=== PATIENT | male | born 1935 | race Caucasian/White ===

== ENCOUNTER 2017-04-24 00:07 | Inpatient (IN) | payer MEDICARE, OTHER ==
[2017-04-24 01:02] LABS: ADD MAN DIFF? NO
[2017-04-24 01:04] LABS: WHITE BLOOD COUNT 13.7 10^3/ul (4.8-10.8)
[2017-04-24 01:04] LABS: BASOPHILS % 0.2 % (0.0-2.0); EOSINOPHILS % 0.3 % (0.0-7.0); HEMATOCRIT 28.3 % (42.0-52.0); HEMOGLOBIN 8.8 g/dl (14.0-18.0); LYMPHOCYTES # 0.9 10^3/ul (0.8-2.9); LYMPHOCYTES % 6.3 % (15.0-51.0); MEAN CORPUSCULAR HEMOGLOBIN 24.4 pg (29.0-33.0); MEAN CORPUSCULAR HGB CONC 31.1 g/dl (32.0-37.0); MEAN CORPUSCULAR VOLUME 78.6 fl (82.0-101.0); MEAN PLATELET VOLUME 10.8 fl (7.4-10.4); MONOCYTES % 7.4 % (0.0-11.0); NEUTROPHIL # 11.7 10^3/ul (1.6-7.5); NEUTROPHILS % 85.1 % (39.0-77.0); PLATELET COUNT 320 10^3/UL (140-415); RED CELL DISTRIBUTION WIDTH 16.5 % (11.5-14.5)
[2017-04-24 01:36] LABS: ANION GAP 19 (8-16); BLOOD UREA NITROGEN 47 mg/dl (7-20); CALCIUM 9.3 mg/dl (8.4-10.2); CARBON DIOXIDE 23 mmol/L (21-31); CHLORIDE 105 mmol/L (97-110); CREATININE 3.33 mg/dl (0.61-1.24); GLUCOSE 278 mg/dl (70-220); POTASSIUM 5.6 mmol/L (3.5-5.1); SODIUM 141 mmol/L (135-144)
[2017-04-24] MEDS ORDERED: ALBUTEROL 0.083% (NEB) 2.5 MG/3 ML AMP HHN (02:07)
[2017-04-24] MEDS: ASPIRIN 81 MG TAB PO (02:27)
[2017-04-24] MEDS: NA POLYST SULFON 15 GM/60 ML BTL PO (02:27)
[2017-04-24] MEDS: DEXTROSE 50% 50 ML SYRINGE IV (02:27)
[2017-04-24] MEDS: INSULIN REGULAR, HUMAN 100 UNIT/1 ML 3ML VIAL IVP (02:33)
[2017-04-24] MEDS: ALBUTEROL 0.5% (NEB) 2.5 MG/0.5 ML AMP INH (02:49)
[2017-04-24 03:03] LABS: B-TYPE NATRIURETIC PEPTIDE 47700 PG/ML (0-450)
[2017-04-24] MEDS ORDERED: ACETAMINOPHEN 325 MG TAB PO (04:00)
[2017-04-24] MEDS ORDERED: NACL 0.9% 3 ML SYG IV (04:00)
[2017-04-24] MEDS ORDERED: ONDANSETRON 4 MG INJ IV (04:00)
[2017-04-24] MEDS: METOPROLOL 5 MG INJ IV (04:39)
[2017-04-24] MEDS: HEPARIN 1000 UNITS/ML 10 ML INJ IV ×2 (04:44→13:36)
[2017-04-24] MEDS: HEPARIN 25000 UNITS/250 ML 250 ML IV ×3 (04:45→21:32)
[2017-04-24] MEDS: ALBUMIN HUMAN 25% 100 ML IV ×2 (04:46→07:01)
[2017-04-24] MEDS: CLOPIDOGREL 75 MG TAB PO ×2 (04:47→13:37)
[2017-04-24 05:40] LABS: ADD MAN DIFF? NO
[2017-04-24 05:46] LABS: WHITE BLOOD COUNT 11.6 10^3/ul (4.8-10.8)
[2017-04-24 05:46] LABS: BASOPHILS % 0.2 % (0.0-2.0); EOSINOPHILS % 0.1 % (0.0-7.0); HEMATOCRIT 27.6 % (42.0-52.0); HEMOGLOBIN 8.6 g/dl (14.0-18.0); LYMPHOCYTES # 0.7 10^3/ul (0.8-2.9); LYMPHOCYTES % 5.9 % (15.0-51.0); MEAN CORPUSCULAR HEMOGLOBIN 24.4 pg (29.0-33.0); MEAN CORPUSCULAR HGB CONC 31.2 g/dl (32.0-37.0); MEAN CORPUSCULAR VOLUME 78.4 fl (82.0-101.0); MEAN PLATELET VOLUME 10.6 fl (7.4-10.4); MONOCYTE # 0.5 10^3/ul (0.3-0.9); MONOCYTES % 4.3 % (0.0-11.0); NEUTROPHIL # 10.3 10^3/ul (1.6-7.5); NEUTROPHILS % 88.8 % (39.0-77.0); PLATELET COUNT 320 10^3/UL (140-415); RED BLOOD COUNT 3.52 10^6/ul (4.70-6.10); RED CELL DISTRIBUTION WIDTH 16.3 % (11.5-14.5)
[2017-04-24 06:02] LABS: INR 1.39; PROTIME 17.3 Sec (11.9-14.9); PT RATIO 1.4
[2017-04-24 06:10] LABS: PARTIAL THROMBOPLASTIN TIME 171.5 Sec (25.0-35.0)
[2017-04-24 06:12] LABS: MAGNESIUM 2.4 mg/dl (1.7-2.5)
[2017-04-24 06:12] LABS: CHOL/HDL RATIO 2.6 RATIO; CHOLESTEROL 95 mg/dl (100-200); HDL CHOLESTEROL 36 mg/dl (31-75); LDL CHOLESTEROL,CALCULATED 38 mg/dl; TRIGLYCERIDES 105 mg/dl (0-149)
[2017-04-24 06:28] LABS: CREATINE KINASE 133 IU/L (23-200)
[2017-04-24 06:40] LABS: CK INDEX 11.4
[2017-04-24 07:16] LABS: HEMOGLOBIN A1C 6.8 % (0-5.9)
[2017-04-24] MEDS: SOD CHLORIDE 0.9% 1,000 ML IV (09:39)
[2017-04-24] MEDS ORDERED: INSULIN ASPART [NOVOLOG] 3 ML PEN SC (11:20)
[2017-04-24] MEDS ORDERED: GLUCAGON 1 MG INJ IM (12:00)
[2017-04-24] MEDS ORDERED: GLUCOSE GEL 15 GRAM TUBE PO ×2 (12:00)
[2017-04-24] MEDS ORDERED: GLUCOSE GEL 15 GRAM TUBE BUCCAL (12:00)
[2017-04-24] MEDS ORDERED: DEXTROSE 50% 50 ML SYRINGE IV ×2 (12:00)
[2017-04-24] MEDS ORDERED: PENDING SANTYL ORDER FOR WOUND CARE XX (12:30)
[2017-04-24 12:38] LABS: PARTIAL THROMBOPLASTIN TIME 37.1 Sec (25.0-35.0)
[2017-04-24 12:38] LABS: CREATINE KINASE 99 IU/L (23-200)
[2017-04-24 12:41] LABS: IRON < 10 ug/dl (35-150)
[2017-04-24 12:47] LABS: TOTAL IRON BINDING CAPACITY 180 ug/dl (241-421)
[2017-04-24 12:50] LABS: CK INDEX 11.4
[2017-04-24] MEDS: ASPIRIN (EC) 81 MG TAB PO (13:37)
[2017-04-24] MEDS: INSULIN ASPART [NOVOLOG] 3 ML PEN SC ×2 (14:32→17:18)
[2017-04-24] MEDS: CALCIUM CARBONATE 500 MG CHEW TAB PO (18:18)
[2017-04-24 20:22] LABS: PARTIAL THROMBOPLASTIN TIME 53.1 Sec (25.0-35.0)
[2017-04-24] MEDS ORDERED: INSULIN GLARGINE [LANtus] 3 ML PEN SC (21:00)
[2017-04-24] MEDS: INSULIN GLARGINE [LANtus] 3 ML PEN SC (21:15)
[2017-04-25] MEDS: LEVOTHYROXINE 25 MCG TAB PO (06:23)
[2017-04-25] MEDS: SOD CHLORIDE 0.9% 1,000 ML IV (06:23)
[2017-04-25 07:22] LABS: ADD MAN DIFF? NO
[2017-04-25 07:24] LABS: WHITE BLOOD COUNT 10.4 10^3/ul (4.8-10.8)
[2017-04-25 07:24] LABS: BASOPHILS % 0.3 % (0.0-2.0); EOSINOPHILS # 0.2 10^3/ul (0.0-0.5); HEMATOCRIT 25.1 % (42.0-52.0); HEMOGLOBIN 7.9 g/dl (14.0-18.0); LYMPHOCYTES # 0.9 10^3/ul (0.8-2.9); MEAN CORPUSCULAR HEMOGLOBIN 24.4 pg (29.0-33.0); MEAN CORPUSCULAR HGB CONC 31.5 g/dl (32.0-37.0); MEAN CORPUSCULAR VOLUME 77.5 fl (82.0-101.0); MEAN PLATELET VOLUME 10.6 fl (7.4-10.4); MONOCYTE # 0.9 10^3/ul (0.3-0.9); MONOCYTES % 8.7 % (0.0-11.0); NEUTROPHIL # 8.2 10^3/ul (1.6-7.5); NEUTROPHILS % 79.4 % (39.0-77.0); PLATELET COUNT 303 10^3/UL (140-415); RED BLOOD COUNT 3.24 10^6/ul (4.70-6.10); RED CELL DISTRIBUTION WIDTH 16.3 % (11.5-14.5)
[2017-04-25] MEDS: INSULIN ASPART [NOVOLOG] 3 ML PEN SC ×3 (07:25→17:31)
[2017-04-25 07:45] LABS: CREATINE KINASE 86 IU/L (23-200)
[2017-04-25 07:46] LABS: URIC ACID 8.5 mg/dl (3.1-7.9)
[2017-04-25 07:46] LABS: ANION GAP 16 (8-16); BLOOD UREA NITROGEN 49 mg/dl (7-20); CALCIUM 8.7 mg/dl (8.4-10.2); CARBON DIOXIDE 24 mmol/L (21-31); CHLORIDE 110 mmol/L (97-110); CREATININE 2.61 mg/dl (0.61-1.24); GLUCOSE 92 mg/dl (70-220); MAGNESIUM 2.4 mg/dl (1.7-2.5); POTASSIUM 4.5 mmol/L (3.5-5.1); SODIUM 145 mmol/L (135-144)
[2017-04-25 07:57] LABS: PARTIAL THROMBOPLASTIN TIME 58.5 Sec (25.0-35.0)
[2017-04-25] MEDS: HEPARIN 25000 UNITS/250 ML 250 ML IV ×3 (08:54→18:17)
[2017-04-25] MEDS: CLOPIDOGREL 75 MG TAB PO (09:45)
[2017-04-25] MEDS: CALCIUM CARBONATE 500 MG CHEW TAB PO ×3 (09:45→20:33)
[2017-04-25] MEDS: METOPROLOL (XL) 25 MG TAB PO ×2 (09:45→20:34)
[2017-04-25] MEDS: ASPIRIN (EC) 81 MG TAB PO (09:45)
[2017-04-25 12:20] LABS: PARTIAL THROMBOPLASTIN TIME 47.8 Sec (25.0-35.0)
[2017-04-25] MEDS: ACETYLCYSTEINE 600 MG CAP PO ×2 (14:28→20:33)
[2017-04-25 14:35] LABS: IRON < 10 ug/dl (35-150)
[2017-04-25 14:42] LABS: TOTAL IRON BINDING CAPACITY 172 ug/dl (241-421)
[2017-04-25 17:51] LABS: PARTIAL THROMBOPLASTIN TIME 51.3 Sec (25.0-35.0)
[2017-04-25] MEDS: ATORVASTATIN 40 MG TAB PO (20:33)
[2017-04-25] MEDS: INSULIN GLARGINE [LANtus] 3 ML PEN SC (20:44)
[2017-04-26 00:52] LABS: PARTIAL THROMBOPLASTIN TIME 69.2 Sec (25.0-35.0)
[2017-04-26] MEDS: SOD CHLORIDE 0.9% 1,000 ML IV ×2 (00:55→20:09)
[2017-04-26] MEDS: LORAZEPAM 2 MG INJ IV (02:10)
[2017-04-26 06:27] LABS: ADD MAN DIFF? NO
[2017-04-26 06:38] LABS: BASOPHIL # 0.1 10^3/ul (0.0-0.1); BASOPHILS % 0.5 % (0.0-2.0); EOSINOPHILS # 0.3 10^3/ul (0.0-0.5); EOSINOPHILS % 3.1 % (0.0-7.0); HEMATOCRIT 25.2 % (42.0-52.0); HEMOGLOBIN 8.2 g/dl (14.0-18.0); LYMPHOCYTES # 1.3 10^3/ul (0.8-2.9); LYMPHOCYTES % 13.7 % (15.0-51.0); MEAN CORPUSCULAR HEMOGLOBIN 25.1 pg (29.0-33.0); MEAN CORPUSCULAR HGB CONC 32.5 g/dl (32.0-37.0); MEAN CORPUSCULAR VOLUME 77.1 fl (82.0-101.0); MEAN PLATELET VOLUME 10.8 fl (7.4-10.4); MONOCYTES % 10.8 % (0.0-11.0); NEUTROPHIL # 6.5 10^3/ul (1.6-7.5); NEUTROPHILS % 71.6 % (39.0-77.0); PLATELET COUNT 334 10^3/UL (140-415); RED BLOOD COUNT 3.27 10^6/ul (4.70-6.10); RED CELL DISTRIBUTION WIDTH 16.5 % (11.5-14.5)
[2017-04-26 06:38] LABS: WHITE BLOOD COUNT 9.1 10^3/ul (4.8-10.8)
[2017-04-26] MEDS: LEVOTHYROXINE 25 MCG TAB PO (06:42)
[2017-04-26 06:53] LABS: ANION GAP 17 (8-16); BLOOD UREA NITROGEN 51 mg/dl (7-20); CALCIUM 8.4 mg/dl (8.4-10.2); CARBON DIOXIDE 22 mmol/L (21-31); CHLORIDE 111 mmol/L (97-110); CREATININE 2.11 mg/dl (0.61-1.24); GLUCOSE 97 mg/dl (70-220); POTASSIUM 3.8 mmol/L (3.5-5.1); SODIUM 146 mmol/L (135-144)
[2017-04-26 07:44] LABS: PARTIAL THROMBOPLASTIN TIME 71.6 Sec (25.0-35.0)
[2017-04-26] MEDS: INSULIN ASPART [NOVOLOG] 3 ML PEN SC ×3 (09:00→17:25)
[2017-04-26] MEDS: CALCIUM CARBONATE 500 MG CHEW TAB PO ×3 (09:12→20:10)
[2017-04-26] MEDS: METOPROLOL (XL) 25 MG TAB PO (09:12)
[2017-04-26] MEDS: ACETYLCYSTEINE 600 MG CAP PO ×2 (09:12→20:10)
[2017-04-26] MEDS: CLOPIDOGREL 75 MG TAB PO (09:12)
[2017-04-26] MEDS: ASPIRIN (EC) 81 MG TAB PO (09:12)
[2017-04-26] MEDS: HEPARIN 25000 UNITS/250 ML 250 ML IV (11:08)
[2017-04-26] MEDS: SOD FERRIC GLUC COMPLX 125 MG in SOD CHLORIDE 0.9% 100 ML IVPB (13:34)
[2017-04-26 14:01] LABS: ADD UMIC YES; UR ASCORBIC ACID NEGATIVE (NEGATIVE); UR BACTERIA MODERATE /HPF (NONE SEEN); UR BILIRUBIN (Dip) NEGATIVE (NEGATIVE); UR BLOOD (Dip) 2+ mg/dL (NEGATIVE); UR BUDDING YEAST FEW /HPF (NONE SEEN); UR CLARITY TURBID (CLEAR); UR COLOR YELLOW (YELLOW); UR GLUCOSE (Dip) NEGATIVE (NEGATIVE); UR KETONES (Dip) NEGATIVE (NEGATIVE); UR LEUKOCYTE ESTERASE (Dip) 3+ Leu/ul (NEGATIVE); UR MUCUS FEW /HPF (NONE SEEN); UR NITRITE (Dip) NEGATIVE (NEGATIVE); UR NONSQUAMOUS EPITHELIAL CELL 3 /HPF (NONE SEEN); UR RBC 80 /HPF (0-5); UR SPECIFIC GRAVITY (Dip) 1.016 (1.003-1.030); UR TOTAL PROTEIN (Dip) 2+ mg/dl (NEGATIVE); UR UROBILINOGEN (Dip) NEGATIVE (NEGATIVE); UR WBC > 182 /HPF (0-5)
[2017-04-26 14:13] LABS: CREATININE,URINE RANDOM 161.86 mg/dl (20-370); PROTEIN/CREAT RATIO 1.21 RATIO
[2017-04-26 14:16] LABS: SODIUM,URINE RANDOM 31 mmol/L (30-90)
[2017-04-26] MEDS: METOPROLOL (XL) 50 MG TAB PO (20:09)
[2017-04-26] MEDS: ATORVASTATIN 40 MG TAB PO (20:10)
[2017-04-26] MEDS: INSULIN GLARGINE [LANtus] 3 ML PEN SC (20:28)
[2017-04-26] MEDS: HEPARIN 5,000 UNIT/0.5 ML VIAL SC (20:28)
[2017-04-27] MEDS: CALCIUM CARBONATE 500 MG CHEW TAB PO ×4 (03:00→17:40)
[2017-04-27] MEDS: LEVOTHYROXINE 25 MCG TAB PO (06:36)
[2017-04-27 07:21] LABS: ADD MAN DIFF? NO
[2017-04-27 07:33] LABS: BASOPHIL # 0.1 10^3/ul (0.0-0.1); BASOPHILS % 0.6 % (0.0-2.0); EOSINOPHILS # 0.3 10^3/ul (0.0-0.5); EOSINOPHILS % 3.5 % (0.0-7.0); HEMATOCRIT 27.4 % (42.0-52.0); HEMOGLOBIN 8.5 g/dl (14.0-18.0); LYMPHOCYTES # 1.3 10^3/ul (0.8-2.9); LYMPHOCYTES % 14.4 % (15.0-51.0); MEAN CORPUSCULAR HEMOGLOBIN 24.1 pg (29.0-33.0); MEAN CORPUSCULAR VOLUME 77.8 fl (82.0-101.0); MEAN PLATELET VOLUME 10.8 fl (7.4-10.4); MONOCYTES % 10.5 % (0.0-11.0); NEUTROPHIL # 6.6 10^3/ul (1.6-7.5); NEUTROPHILS % 70.7 % (39.0-77.0); PLATELET COUNT 369 10^3/UL (140-415); RED BLOOD COUNT 3.52 10^6/ul (4.70-6.10); RED CELL DISTRIBUTION WIDTH 16.4 % (11.5-14.5)
[2017-04-27 07:33] LABS: WHITE BLOOD COUNT 9.3 10^3/ul (4.8-10.8)
[2017-04-27 07:49] LABS: ANION GAP 13 (8-16); BLOOD UREA NITROGEN 54 mg/dl (7-20); CALCIUM 8.6 mg/dl (8.4-10.2); CARBON DIOXIDE 24 mmol/L (21-31); CHLORIDE 112 mmol/L (97-110); CREATININE 1.95 mg/dl (0.61-1.24); GLUCOSE 122 mg/dl (70-220); POTASSIUM 3.8 mmol/L (3.5-5.1); SODIUM 145 mmol/L (135-144)
[2017-04-27] MEDS: ACETYLCYSTEINE 600 MG CAP PO ×2 (08:17→21:09)
[2017-04-27] MEDS: ASPIRIN (EC) 81 MG TAB PO (08:18)
[2017-04-27] MEDS: METOPROLOL (XL) 50 MG TAB PO ×2 (08:18→21:09)
[2017-04-27] MEDS: CLOPIDOGREL 75 MG TAB PO (08:18)
[2017-04-27] MEDS: HEPARIN 5,000 UNIT/0.5 ML VIAL SC ×2 (08:19→21:14)
[2017-04-27] MEDS: INSULIN ASPART [NOVOLOG] 3 ML PEN SC ×3 (08:20→17:50)
[2017-04-27] MEDS: SOD FERRIC GLUC COMPLX 125 MG in SOD CHLORIDE 0.9% 100 ML IVPB (13:13)
[2017-04-27] MEDS: ALBUTEROL 0.083% (NEB) 2.5 MG/3 ML AMP HHN ×3 (14:13→21:15)
[2017-04-27] MEDS: SOD CHLORIDE 0.45% 1,000 ML IV (18:03)
[2017-04-27] MEDS: INSULIN GLARGINE [LANtus] 3 ML PEN SC (21:00)
[2017-04-27] MEDS: ATORVASTATIN 40 MG TAB PO (21:08)
[2017-04-27] MEDS: NYSTATIN 30 GM POWDER BTL TOP (21:39)
[2017-04-28] MEDS: CALCIUM CARBONATE 500 MG CHEW TAB PO ×5 (01:02→21:05)
[2017-04-28] MEDS: LEVOTHYROXINE 25 MCG TAB PO (06:34)
[2017-04-28 07:53] LABS: ADD MAN DIFF? NO
[2017-04-28 07:56] LABS: WHITE BLOOD COUNT 12.5 10^3/ul (4.8-10.8)
[2017-04-28 07:56] LABS: BASOPHIL # 0.1 10^3/ul (0.0-0.1); BASOPHILS % 0.5 % (0.0-2.0); EOSINOPHILS # 0.2 10^3/ul (0.0-0.5); EOSINOPHILS % 1.5 % (0.0-7.0); HEMATOCRIT 29.5 % (42.0-52.0); HEMOGLOBIN 9.2 g/dl (14.0-18.0); LYMPHOCYTES # 1.2 10^3/ul (0.8-2.9); LYMPHOCYTES % 9.6 % (15.0-51.0); MEAN CORPUSCULAR HEMOGLOBIN 24.3 pg (29.0-33.0); MEAN CORPUSCULAR HGB CONC 31.2 g/dl (32.0-37.0); MEAN PLATELET VOLUME 10.4 fl (7.4-10.4); MONOCYTE # 1.1 10^3/ul (0.3-0.9); MONOCYTES % 8.4 % (0.0-11.0); NEUTROPHIL # 9.9 10^3/ul (1.6-7.5); NEUTROPHILS % 79.1 % (39.0-77.0); PLATELET COUNT 432 10^3/UL (140-415); RED BLOOD COUNT 3.78 10^6/ul (4.70-6.10); RED CELL DISTRIBUTION WIDTH 16.4 % (11.5-14.5)
[2017-04-28 08:17] LABS: INR 1.12; PROTIME 14.6 Sec (11.9-14.9); PT RATIO 1.1
[2017-04-28 08:18] LABS: PARTIAL THROMBOPLASTIN TIME 38.4 Sec (25.0-35.0)
[2017-04-28 08:23] LABS: ANION GAP 19 (8-16); BLOOD UREA NITROGEN 49 mg/dl (7-20); CALCIUM 8.9 mg/dl (8.4-10.2); CARBON DIOXIDE 21 mmol/L (21-31); CHLORIDE 111 mmol/L (97-110); CREATININE 1.63 mg/dl (0.61-1.24); GLUCOSE 131 mg/dl (70-220); MAGNESIUM 2.3 mg/dl (1.7-2.5); POTASSIUM 4.1 mmol/L (3.5-5.1); SODIUM 147 mmol/L (135-144)
[2017-04-28] MEDS: ACETYLCYSTEINE 600 MG CAP PO (08:36)
[2017-04-28] MEDS: METOPROLOL (XL) 50 MG TAB PO (08:37)
[2017-04-28] MEDS: INSULIN ASPART [NOVOLOG] 3 ML PEN SC ×3 (08:47→17:25)
[2017-04-28] MEDS: LIDOCAINE 1% (MPF) 5 ML VIAL (09:42)
[2017-04-28] MEDS: NYSTATIN 30 GM POWDER BTL TOP ×2 (09:44→21:18)
[2017-04-28] MEDS: CLOPIDOGREL 75 MG TAB PO (10:08)
[2017-04-28] MEDS: ASPIRIN (EC) 81 MG TAB PO (10:08)
[2017-04-28] MEDS: HEPARIN 5,000 UNIT/0.5 ML VIAL SC ×2 (10:13→21:11)
[2017-04-28] MEDS: SOD FERRIC GLUC COMPLX 125 MG in SOD CHLORIDE 0.9% 100 ML IVPB (12:45)
[2017-04-28] MEDS: VALSARTAN 80 MG TAB PO (15:36)
[2017-04-28] MEDS ORDERED: ALBUTEROL 0.083% (NEB) 2.5 MG/3 ML AMP HHN (17:00)
[2017-04-28] MEDS: FUROSEMIDE 40 MG INJ IV (17:36)
[2017-04-28] MEDS: ATORVASTATIN 40 MG TAB PO (21:05)
[2017-04-28] MEDS: INSULIN GLARGINE [LANtus] 3 ML PEN SC (21:17)
[2017-04-29] MEDS: LEVOTHYROXINE 25 MCG TAB PO (06:27)
[2017-04-29] MEDS: INSULIN ASPART [NOVOLOG] 3 ML PEN SC ×4 (07:25→18:21)
[2017-04-29] MEDS: CLOPIDOGREL 75 MG TAB PO (08:39)
[2017-04-29] MEDS: CALCIUM CARBONATE 500 MG CHEW TAB PO ×4 (08:39→20:43)
[2017-04-29] MEDS: VALSARTAN 80 MG TAB PO (08:39)
[2017-04-29] MEDS: METOPROLOL (XL) 50 MG TAB PO (08:40)
[2017-04-29] MEDS: ASPIRIN (EC) 81 MG TAB PO (08:40)
[2017-04-29] MEDS: NYSTATIN 30 GM POWDER BTL TOP ×2 (08:40→20:53)
[2017-04-29 08:45] LABS: ADD MAN DIFF? NO
[2017-04-29 08:57] LABS: BASOPHIL # 0.1 10^3/ul (0.0-0.1); BASOPHILS % 0.4 % (0.0-2.0); EOSINOPHILS # 0.6 10^3/ul (0.0-0.5); EOSINOPHILS % 4.6 % (0.0-7.0); HEMATOCRIT 28.3 % (42.0-52.0); HEMOGLOBIN 8.9 g/dl (14.0-18.0); LYMPHOCYTES # 1.4 10^3/ul (0.8-2.9); LYMPHOCYTES % 11.7 % (15.0-51.0); MEAN CORPUSCULAR HEMOGLOBIN 24.3 pg (29.0-33.0); MEAN CORPUSCULAR HGB CONC 31.4 g/dl (32.0-37.0); MEAN CORPUSCULAR VOLUME 77.3 fl (82.0-101.0); MEAN PLATELET VOLUME 10.2 fl (7.4-10.4); MONOCYTES % 7.9 % (0.0-11.0); NEUTROPHIL # 9.2 10^3/ul (1.6-7.5); PLATELET COUNT 429 10^3/UL (140-415); RED BLOOD COUNT 3.66 10^6/ul (4.70-6.10)
[2017-04-29 08:57] LABS: WHITE BLOOD COUNT 12.2 10^3/ul (4.8-10.8)
[2017-04-29] MEDS: HEPARIN 5,000 UNIT/0.5 ML VIAL SC ×2 (09:13→20:40)
[2017-04-29 09:34] LABS: ANION GAP 14 (8-16); BLOOD UREA NITROGEN 47 mg/dl (7-20); CALCIUM 9.1 mg/dl (8.4-10.2); CARBON DIOXIDE 24 mmol/L (21-31); CHLORIDE 111 mmol/L (97-110); CREATININE 1.55 mg/dl (0.61-1.24); GLUCOSE 65 mg/dl (70-220); POTASSIUM 3.9 mmol/L (3.5-5.1); SODIUM 145 mmol/L (135-144)
[2017-04-29] MEDS: FUROSEMIDE 20 MG INJ IV ×3 (11:53→18:53)
[2017-04-29] MEDS ORDERED: LEVOFLOXACIN 750MG/D5W (PMX) 150 ML IVPB (12:30)
[2017-04-29] MEDS: SOD FERRIC GLUC COMPLX 125 MG in SOD CHLORIDE 0.9% 100 ML IVPB (12:50)
[2017-04-29] MEDS: AZTREONAM 1 GM/NS (PMX) 50 ML IVPB ×2 (14:22→20:00)
[2017-04-29] MEDS: morphine 2 MG INJ IV ×2 (14:22→19:56)
[2017-04-29] MEDS: CLINDAMYCIN 300 MG/D5W (PMX) 50 ML IVPB ×2 (15:43→22:00)
[2017-04-29] MEDS: INSULIN GLARGINE [LANtus] 3 ML PEN SC (20:37)
[2017-04-29] MEDS: ATORVASTATIN 40 MG TAB PO (20:42)
[2017-04-30] MEDS: AZTREONAM 1 GM/NS (PMX) 50 ML IVPB ×2 (04:53→12:05)
[2017-04-30] MEDS: CLINDAMYCIN 300 MG/D5W (PMX) 50 ML IVPB ×2 (05:25→15:06)
[2017-04-30] MEDS: LEVOTHYROXINE 25 MCG TAB PO (06:25)
[2017-04-30] MEDS: FUROSEMIDE 20 MG INJ IV ×2 (06:26→17:39)
[2017-04-30] MEDS: INSULIN ASPART [NOVOLOG] 3 ML PEN SC ×3 (07:25→17:25)
[2017-04-30 07:38] LABS: ADD MAN DIFF? NO
[2017-04-30 07:50] LABS: WHITE BLOOD COUNT 15.4 10^3/ul (4.8-10.8)
[2017-04-30 07:50] LABS: BASOPHIL # 0.1 10^3/ul (0.0-0.1); BASOPHILS % 0.5 % (0.0-2.0); EOSINOPHILS % 6.4 % (0.0-7.0); HEMATOCRIT 29.7 % (42.0-52.0); HEMOGLOBIN 9.5 g/dl (14.0-18.0); LYMPHOCYTES # 1.8 10^3/ul (0.8-2.9); MEAN CORPUSCULAR VOLUME 78.2 fl (82.0-101.0); MEAN PLATELET VOLUME 10.3 fl (7.4-10.4); MONOCYTE # 1.4 10^3/ul (0.3-0.9); MONOCYTES % 8.8 % (0.0-11.0); NEUTROPHILS % 71.7 % (39.0-77.0); PLATELET COUNT 450 10^3/UL (140-415); RED CELL DISTRIBUTION WIDTH 17.7 % (11.5-14.5)
[2017-04-30 08:05] LABS: ANION GAP 14 (8-16); BLOOD UREA NITROGEN 47 mg/dl (7-20); CARBON DIOXIDE 28 mmol/L (21-31); CHLORIDE 107 mmol/L (97-110); GLUCOSE 63 mg/dl (70-220); POTASSIUM 3.7 mmol/L (3.5-5.1); SODIUM 145 mmol/L (135-144)
[2017-04-30] MEDS: CALCIUM CARBONATE 500 MG CHEW TAB PO ×3 (08:27→17:00)
[2017-04-30] MEDS: ASPIRIN (EC) 81 MG TAB PO (08:27)
[2017-04-30] MEDS: CLOPIDOGREL 75 MG TAB PO (08:28)
[2017-04-30] MEDS: VALSARTAN 80 MG TAB PO (08:28)
[2017-04-30] MEDS: HEPARIN 5,000 UNIT/0.5 ML VIAL SC (08:29)
[2017-04-30] MEDS: METOPROLOL (XL) 100 MG TAB PO (08:40)
[2017-04-30] MEDS: NYSTATIN 30 GM POWDER BTL TOP (10:51)
[2017-04-30] MEDS: SOD FERRIC GLUC COMPLX 125 MG in SOD CHLORIDE 0.9% 100 ML IVPB (13:52)
[2017-04-30 14:40] LABS: ADD MAN DIFF? NO
[2017-04-30 14:44] LABS: WHITE BLOOD COUNT 14.8 10^3/ul (4.8-10.8)
[2017-04-30 14:44] LABS: BASOPHIL # 0.1 10^3/ul (0.0-0.1); BASOPHILS % 0.3 % (0.0-2.0); EOSINOPHILS # 0.6 10^3/ul (0.0-0.5); EOSINOPHILS % 3.8 % (0.0-7.0); HEMATOCRIT 32.2 % (42.0-52.0); HEMOGLOBIN 10.2 g/dl (14.0-18.0); LYMPHOCYTES # 1.1 10^3/ul (0.8-2.9); LYMPHOCYTES % 7.7 % (15.0-51.0); MEAN CORPUSCULAR HGB CONC 31.7 g/dl (32.0-37.0); MEAN CORPUSCULAR VOLUME 78.9 fl (82.0-101.0); MEAN PLATELET VOLUME 9.9 fl (7.4-10.4); MONOCYTE # 1.1 10^3/ul (0.3-0.9); MONOCYTES % 7.6 % (0.0-11.0); NEUTROPHIL # 11.8 10^3/ul (1.6-7.5); NEUTROPHILS % 80.1 % (39.0-77.0); PLATELET COUNT 439 10^3/UL (140-415); RED BLOOD COUNT 4.08 10^6/ul (4.70-6.10); RED CELL DISTRIBUTION WIDTH 17.6 % (11.5-14.5)
[2017-04-30] MEDS ORDERED: VALSARTAN 80 MG TAB PO (21:00)
== END 2017-04-30 17:44 | disposition home health service (06) | DRG 280 ==
LOC: TEL 04-28 18:25 → E/R 00:07 → TEL 03:37
PROC: 0W993ZZ Drainage of Right Pleural Cavity, Percutaneous Approach (ICD-10-PCS; principal; 2017-04-28)
DX: I21.4 Non-ST elevation (NSTEMI) myocardial infarction (principal); I50.21 Acute systolic (congestive) heart failure; J90 Pleural effusion, not elsewhere classified; N17.9 Acute kidney failure, unspecified; N18.4 Chronic kidney disease, stage 4 (severe); E87.0 Hyperosmolality and hypernatremia; E11.9 Type 2 diabetes mellitus without complications; D50.9 Iron deficiency anemia, unspecified; I69.851 Hemiplegia and hemiparesis following other cerebrovascular disease affecting right dominant side; I82.611 Acute embolism and thrombosis of superficial veins of right upper extremity; I13.0 Hypertensive heart and chronic kidney disease with heart failure and stage 1 through stage 4 chronic kidney disease, or unspecified chronic kidney disease; I10 Essential (primary) hypertension; Z95.1 Presence of aortocoronary bypass graft; Z74.01 Bed confinement status; Z99.3 Dependence on wheelchair; E03.9 Hypothyroidism, unspecified; D63.8 Anemia in other chronic diseases classified elsewhere; I48.91 Unspecified atrial fibrillation
CPT/HCPCS: 32555; 36415; 71045; 74176; 76775; 80048; 80061; 81001; 81003; 82550; 82553; 82570; 82728; 82962; 83036; 83540; 83735; 83880; 84300; 84443; 84484; 84560; 85025; 85610; 85730; 89190; 92610; 93005; 93306; 93970; 93971; 94640; 94664; 96374; 96375; 96376; 97162; 99291-25; J1940